=== PATIENT | female | born 1965 | race Caucasian/White ===

== ENCOUNTER 2022-03-23 04:44 | Emergency (ER) | payer MEDICAID ==
[~2022-03-23] VITALS: Ht 172.7 cm; Wt 79.8 kg
--- NOTE | 2022-03-23 05:00 | NUR ---
BIB FOR C/O CHRONIC DIZZINESS AND "FEELING VERY BAD". PT HAS A HX OF DIZZINESS AND DIFFICULTY WITH HEARING IN L EAR. HAS BEEN SEEN BY HER PMD AND FINISHED RECENT COURSE OF STEROID WITHOUT RELIEF. HAS A FOLLOW ON 03/27 FOR POSSIBLE SURIGCAL INTERVENTION. PT AWAKE AND ALERT X4 BREATHING UNLABORED.PLACED ON MONITOR AND V/S WNL.
[2022-03-23] MEDS ORDERED: MECLIZINE HCL 25 MG TABLET ONE (05:07)
--- NOTE | 2022-03-23 05:10 | NUR ---
EMT AT BEDSIDE FOR EKG
--- NOTE | 2022-03-23 05:12 | NUR ---
20G IV STARTED AT [facility]. BLOOD SENT TO LAB
--- NOTE | 2022-03-23 05:16 | NUR ---
xray at bedside
[2022-03-23] MEDS ORDERED: MECLIZINE HCL 12.5 MG TABLET PO ONE (05:30)
[2022-03-23 06:12] LABS: BASOPHILS % (AUTO) 0.3 % (0.0-2.0); HEMATOCRIT 41 % (33-45); HEMOGLOBIN 14.1 g/dL (11.5-14.8); LYMPHOCYTES # (AUTO) 3.6 K/uL (0.8-4.8); LYMPHOCYTES % (AUTO) 33.3 % (20.0-44.0); MEAN CORPUSCULAR HGB CONC 34 g/dl (31.0-36.0); MEAN CORPUSCULAR VOLUME 82 fL (82-100); MONOCYTES # (AUTO) 0.6 K/uL (0.1-1.30); MONOCYTES % (AUTO) 5.2 % (2.0-12.0); NEUTROPHILS # (AUTO) 6.5 K/uL (1.8-8.9); NEUTROPHILS % (AUTO) 60.2 % (43.0-81.0); PLATELET COUNT (AUTO) 234 K/uL (150-450); RED BLOOD CELL COUNT(AUTO) 5.06 MIL/uL (4.0-5.2); WHITE BLOOD COUNT (AUTO) 10.7 K/uL (4.3-11.0)
[2022-03-23 06:16] LABS: CALCIUM, SERUM 8.8 mg/dL (8.5-10.1); CARBON DIOXIDE 30 mmol/L (21-32); CHLORIDE 103 mmol/L (98-107); CREATININE 0.8 mg/dL (0.6-1.3); GLUCOSE 121 mg/dL (74-106); POTASSIUM 3.6 mmol/L (3.5-5.1); SODIUM SERUM 141 mmol/L (136-145); UREA NITROGEN, BLOOD 15 mg/dL (7-18)
--- NOTE | 2022-03-23 07:20 | NUR ---
RECIVED PT FROM [facility] PT AWAKE AND ALERT RESPIRATION SPON AND EASY
--- NOTE | 2022-03-23 07:40 | NUR ---
BLOOD DROW FOR REPEAT TROPIN 2AT BED SIDE
--- NOTE | 2022-03-23 09:00 | NUR ---
IV removed. Catheter intact and site benign. Pressure and 4x4 applied to site. No bleeding noted.
--- NOTE | 2022-03-23 09:03 | NUR ---
Patient discharged to home in stable condition. Written and verbal after care instructions given. Patient verbalizes understanding of instruction.
--- NOTE | 2022-03-23 09:13 | NUR ---
AWAITING DIPOSITION OF PATIENT BY .
[2022-03-23 09:16] VITALS: BP 129/79
[2022-03-30] MEDS ORDERED: MECLIZINE HCL 25 MG TABLET PO ONE (22:00)
== END 2022-03-23 09:16 | disposition home or self-care (01) ==
LOC: ER 04:49
DX: R42 Dizziness and giddiness (principal); R07.89 Other chest pain
CPT/HCPCS: 99285; 71045; 93005; 85025; 80048; 36415; 84484 ×2; J8597

== ENCOUNTER 2022-03-30 20:04 | Emergency (ER) | payer MEDICAID ==
[~2022-03-30] VITALS: Ht 170.2 cm; Wt 90.7 kg
--- NOTE | 2022-03-30 20:25 | NUR ---
NANDINI FOR C/O OF CHRONIC HEADACHE AND R EAR INFECTION. PER , SHE IS BEINF TREATED AT AN OUTPATIENT CLINIC WITH INJECTIONS BUT IS NOT MED COMPLIENT AT HOME. PER , PT HAD AN EPISODE OF DIZZINESS WHILE GOING TO THE RESTROOM TONIGHT AND LOST BALANCE. PT AWAKE AND ALERT BUT UNCCOPERATIVE WITH EXAMINATION UNABLE TO OBTAIN PAIN SCALE. EQUAL STRENGTH IN ALL EXTREMITIES PLACED ON MONITOR AND V/S WNL. WAS AT BEDSIDE FOR EVAL.
--- NOTE | 2022-03-30 20:28 | NUR ---
LAB AT BEDSIDE
--- NOTE | 2022-03-30 20:34 | NUR ---
EYES CLOSED NO GARCIA AT THIS TIME
--- NOTE | 2022-03-30 20:58 | NUR ---
TO CT SCAN OF HEAD
[2022-03-30 21:03] LABS: BASOPHILS % (AUTO) 0.3 % (0.0-2.0); EOSINOPHILS % (AUTO) 1.5 % (0.0-6.0); HEMATOCRIT 41 % (33-45); HEMOGLOBIN 13.4 g/dL (11.5-14.8); LYMPHOCYTES # (AUTO) 1.8 K/uL (0.8-4.8); LYMPHOCYTES % (AUTO) 19.4 % (20.0-44.0); MEAN CORPUSCULAR HGB CONC 33 g/dl (31.0-36.0); MEAN CORPUSCULAR VOLUME 83 fL (82-100); MONOCYTES # (AUTO) 0.5 K/uL (0.1-1.30); MONOCYTES % (AUTO) 5.4 % (2.0-12.0); NEUTROPHILS # (AUTO) 6.8 K/uL (1.8-8.9); NEUTROPHILS % (AUTO) 73.4 % (43.0-81.0); PLATELET COUNT (AUTO) 207 K/uL (150-450); RED BLOOD CELL COUNT(AUTO) 4.91 MIL/uL (4.0-5.2); WHITE BLOOD COUNT (AUTO) 9.3 K/uL (4.3-11.0)
--- NOTE | 2022-03-30 21:15 | NUR ---
MD WELSH AT BEDSIDE
[2022-03-30 21:26] LABS: CALCIUM, SERUM 8.7 mg/dL (8.5-10.1); CREATININE 0.9 mg/dL (0.6-1.3); POTASSIUM 2.9 mmol/L (3.5-5.1)
[2022-03-30] MEDS ORDERED: MECLIZINE HCL 12.5 MG TABLET PO ONE (22:00)
[2022-03-30] MEDS ORDERED: LORAZEPAM 1 MG TABLET PO ONE (22:00)
[2022-03-30] MEDS ORDERED: LORAZEPAM 0.5 MG TABLET ONE (22:12)
[2022-03-30] MEDS ORDERED: MECLIZINE HCL 25 MG TABLET ONE (22:12)
--- NOTE | 2022-03-30 22:18 | NUR ---
LILO SENT TO LAB
[2022-03-30] MEDS ORDERED: MECL-159 PO (23:03)
--- NOTE | 2022-03-30 23:21 | NUR ---
Patient discharged to home in stable condition. Written and verbal after care instructions given. Patient verbalizes understanding of instruction.
[2022-03-30 23:23] VITALS: BP 139/78
[2022-03-30] MEDS ORDERED: POTASSIUM CHLORIDE 20 MEQ TAB.PRT.SR PO ONE (23:30)
== END 2022-03-30 23:23 | disposition home or self-care (01) ==
LOC: ER 20:09
DX: R42 Dizziness and giddiness (principal); E87.6 Hypokalemia; I10 Essential (primary) hypertension; E11.9 Type 2 diabetes mellitus without complications; Z79.899 Other long term (current) drug therapy; Z20.822 Contact with and (suspected) exposure to COVID-19
CPT/HCPCS: 99285; 70450; 87426; 85025; 80048; 36415; 85730; J8597; C9803